=== PATIENT | female | born 1970 | race Caucasian/White ===

== ENCOUNTER 2024-07-02 16:16 | Outpatient (REF) | payer MEDICAID, SELFPAY | END 2024-07-02 16:17 | disposition home or self-care (01) | LOC: LBN 16:16 | PROVIDERS: Visit Provider Physician Assistant | DX: J02.9 Acute pharyngitis, unspecified (principal); R30.0 Dysuria; N39.0 Urinary tract infection, site not specified | CPT/HCPCS: 87070; 87480; 87510; 87660 ==

== ENCOUNTER 2024-11-12 13:14 | Outpatient (REF) | payer MEDICAID, SELFPAY | END 2024-11-12 13:15 | disposition home or self-care (01) | LOC: LBN 13:14 | PROVIDERS: PCP Nurse Practitioner Family; Visit Provider Nurse Practitioner Family | DX: N76.0 Acute vaginitis (principal) | CPT/HCPCS: 87480; 87510; 87660 ==

== ENCOUNTER 2024-11-12 13:47 | Outpatient (CLI) | payer MEDICAID, SELFPAY ==
[2024-11-12 12:42] LABS: Hemoglobin A1C 5.7 % (<5.7)
[2024-11-12 13:16] LABS: ALT 20 U/L (14-59); AST 16 U/L (15-37); Albumin 3.9 g/dL (3.4-5.0); Alkaline Phosphatase 69 U/L (46-116); Anion Gap 5.2 mmol/L (3-11); BUN 12 mg/dL (7-18); Bilirubin, Total 0.4 mg/dL (0.2-1.0); CO2 29.8 mmol/L (21.0-32.0); Calcium 9.5 mg/dL (8.5-10.1); Calculated LDL 150 mg/dL (<100); Chloride 103 mmol/L (98-107); Cholesterol 234 mg/dL (<200); Estimated GFR 75.50 (mL/min/1.73m2); Glucose 91 mg/dL (74-106); HDL Cholesterol 62 mg/dL (>or=50); Potassium 4.7 mmol/L (3.5-5.1); Sodium 138 mmol/L (136-145); TSH (W/Ref FT4) 1.62 uIU/mL (0.36-3.74); Total Protein 7.4 g/dL (6.4-8.2); Triglyceride 110 mg/dL (<150)
== END 2024-11-12 13:48 | disposition home or self-care (01) ==
LOC: LBO 13:48
PROVIDERS: PCP Nurse Practitioner Family; Visit Provider Nurse Practitioner Family
DX: Z13.1 Encounter for screening for diabetes mellitus (principal); E03.9 Hypothyroidism, unspecified; I10 Essential (primary) hypertension; Z13.220 Encounter for screening for lipoid disorders
CPT/HCPCS: 36415; 80053; 80061; 83036; 84443

== ENCOUNTER 2024-11-19 13:04 | Outpatient (CLI) | payer MEDICAID, SELFPAY ==
[2024-11-19 10:59] LABS: HCT 45.0 % (36.0-46.0); HGB 15.3 g/dL (11.2-15.7); MCH 32.0 pg (27.0-33.0); MCHC 34.0 % (32.0-36.0); MCV 94 fL (80-95); MPV 9.2 fL (8.0-11.0); Platelet Count 232 10^3/uL (130-400); RBC 4.78 10^6/uL (3.93-5.22); RDW 13.8 % (11.7-14.6); RDW-SD 47.8 fL; WBC 9.21 10^3/uL (4.4-10.8)
== END 2024-11-19 13:05 | disposition home or self-care (01) ==
LOC: LBO 13:05
PROVIDERS: PCP Nurse Practitioner Family; Visit Provider Nurse Practitioner Family
DX: F10.20 Alcohol dependence, uncomplicated (principal); F17.200 Nicotine dependence, unspecified, uncomplicated; K21.9 Gastro-esophageal reflux disease without esophagitis
CPT/HCPCS: 36415; 85027

== ENCOUNTER 2025-02-16 09:56 | Day surgery (SDC) | payer MEDICAID, SELFPAY ==
[2025-02-16 10:28] VITALS: BP 128/96; PULSE 74; RESP 18; TEMP 36.3; O2SAT 99
[2025-02-16] MEDS: Lactated Ringers 1,000 ML 80 ML IV (10:47)
--- NOTE | 2025-02-16 11:07 | W.PM.DSUDISC ---
Date of service: 02/16/25 Discharge Plan Disposition Patient Disposition: Home Condition: Stable Discharge Details Reason For Visit: EGD and colonoscopy procedures Attending Provider: Caroline Newton Primary Care Provider: Jimenez Aragon Home Meds and New Rx's Prescriptions: New pantoprazole 40 mg tablet,delayed release (DR/EC) 40 mg PO DAILY Qty: 30 11RF famotidine 40 mg tablet 40 mg PO QHS Qty: 30 11RF Continued magnesium glycinate 100 mg tablet 100 mg PO DAILY potassium gluconate 600 mg (99 mg) tablet 600 mg PO DAILY lisinopril 10 mg tablet 10 mg PO DAILY Qty: 90 3RF Discontinued famotidine 20 mg tablet 20 mg PO DAILY Discharge Instructions Additional Instructions: EGD today shows one esophagus varix (varices, but I only saw one). It is grade 1, not severe. You also have severe esophagitis with erosion and you showed signs that you bleed from the esophagus. We have to treat this with medication, its so important that we heal this before you end up with a major bleeding emergency. I am prescribing a medicine called pantoprazole, I need you to take it once a day to help heal the esophagus. Over time your stomach issues will improve, but remember to take that medicine even if you dont feel improvement - it heals your esophagus and thats what we need from it. Due to the severity of the esophagitis, I am also recommending we increase your pepcid dose. I am prescribing a 40mg tablet for you to take at night time. Take pantoprazole in the morning, and the pepcid (famotidine) at night. Duodenum was also irritated and so was the stomach. Nothing severe there, not like the esophagus irritation. I took biopsies as planned to check you for H pylori infection and will reach out my phone if you have it, and by mail if you do not. Colonoscopy showed 2 small polyps, I removed them. Healthy colon and rectum. Next colonoscopy will be due in 5 years. I need you to come see me in office so I can help you resolve the esophagus stuff before it gets severe. I scheduled a follow up for 03/04/25 at 930am. If that doesnt work call my office and change it, but be sure to come see me. Stand Alone Forms: Anesthesia Discharge Inst., DSU Post EGD Instructions, Colonoscopy Post Instructions, Karis Chen (DSU), Portal Information Activity:: Activity as Tolerated Diet:: As Tolerated Discharge Orders Discharge Orders: Discharge Order (Routine); Ordered 02/16/25 Ordered By: Caroline Newton DS: Diagnosis Discharge Diagnosis (1) GERD (gastroesophageal reflux disease): Status: Chronic (2) Encounter for screening colonoscopy: Status: Acute (3) Erosive esophagitis: Status: Acute (4) Gastritis and duodenitis: Status: Acute
--- NOTE | 2025-02-16 11:14 | W.ANESPRE ---
General Info Date of Service Date Performed: 02/16/25 Height: 5 ft 4.25 in Weight: 75.75 kg Body Mass Index (BMI): 28.4 Surgical Procedure: Operation Date: 02/16/25 11:05 Proposed Procedure Side Surgeon p Colonoscopy/Gastroscopy Caroline Newton MD Actual Procedure Side Surgeon p Colonoscopy/Gastroscopy Caroline Newton MD Meds Allergies and Home Medications Allergies Allergy/AdvReac Type Severity Reaction Status Date / Time No Known Allergies Allergy Verified 02/16/25 10:25 Home Medication Medication Instructions Recorded famotidine 20 mg tablet 20 mg PO DAILY 07/02/24 magnesium glycinate 100 mg (as 100 mg PO DAILY 07/02/24 glycinate) tablet potassium gluconate 600 mg (99 mg) 600 mg PO DAILY 07/02/24 tablet lisinopril 10 mg tablet 10 mg PO DAILY #90 tabs 11/12/24 Current Visit Medications: Current Medications Generic Name Dose Route Start Last Admin Trade Name Freq PRN Reason Stop Dose Admin Ringer's Solution 1,000 mls @ 80 mls/hr 02/16/25 06:00 02/16/25 10:47 IV 02/16/25 23:59 80 mls/hr INFUSION FRANKO Administration IV Miscellaneous Supplies 1 each 02/16/25 06:00 Iv Access IV 02/16/25 23:59 DIRECTED FRANKO Sodium Chloride 0 ml 02/16/25 06:00 Normal Saline Flush 10 Ml Syr IV 02/16/25 23:59 PRN PRN Sodium Chloride 0 ml 02/16/25 06:00 Normal Saline 10 Ml Vial IJ 02/16/25 23:59 DIRECTED PRN Sterile Water 0 ml 02/16/25 06:00 Water,Injection,Sterile 10 Ml Vial IJ 02/16/25 23:59 DIRECTED PRN PFSH Active Problems Active Problems: Problem Status Onset Code Encounter for screening colonoscopy Acute Z12.11 Smoker Acute F17.200 Alcoholism Acute F10.20 Depression Chronic F32.A GERD (gastroesophageal reflux disease) Chronic K21.9 Hypertension Chronic I10 Surgical History Surgical History S/P appendectomy (~2019) [facility] [place] Tobacco Smoking/Tobacco Use Status: Current every day Tobacco Type: cigarettes Passive smoking exposure: Yes Second hand exposure: Yes Alcohol Alcohol Intake: current Alcohol intake frequency: a few times a week Alcohol type: hard liquor Substance Use Substance use: Occasionally Substance use type: marijuana Details: None in the past few days. Vital Signs and Lab Results Vital Signs Most Recent Vital Signs in EMR: Most Recent Vital Signs Temp Pulse Resp BP Pulse Ox 36.3 C L 74 18 128/96 H 99 02/16/25 10:28 02/16/25 10:28 02/16/25 10:28 02/16/25 10:28 02/16/25 10:28 Anesthesia Assessment and Plan Anesthesia History Personal History: No History of Anesthesia Complications Family History: No Family History of Anesthesia Complications Exercise Tolerance Exercise Tolerance: Metabolic Equivalents>4 Pertinent Negatives Pertinent Negatives: No Symptoms of GERD (recurrent GERD), No Major Cardiovascular Symptoms or Complaints, No Major Pulmonary Symptoms or Complaints and No History of CVA/TIA Cardiac & Pulmonary Exam Cardiac Exam: Normal S1/S2 Heart Sounds Pulmonary Exam: Clear Bilateral Breath Sounds Implantable Cardiac Device Does patient have a Pacemaker or an ICD?: No Airway Exam Known Difficult Airway: No Mallampati Class: 1 Mouth Opening: Normal (> 3cm) Thyromental Distance: Greater than 3 cm Neck Range of Motion: Full ROM Neck Circumference: Normal Teeth Condition: Normal Dentition ASA Classification ASA Score: ASA 2 Emergency Case?: No NPO Status NPO Status: NPO Clears >2 hours, Solids >8 hours Anesthesia Plan Resuscitation Status: Full Code Anesthesia Technique: General Anesthesia Airway Planned: Natural Airway Monitors Used: Standard Monitors
[2025-02-16 11:16] VITALS: BMI 28.4
--- NOTE | 2025-02-16 11:22 | BOWEL_PTH ---
PATIENT: Candie Salas LOC: NURIS U#:[id number] AGE/SX: 54/F ROOM: RE02/16/[address]: Caroline Newton MD : 1970 BED: DIS: 02/16/2025 SPEC #: [id number] RECD: 02/16/25 12:24 STATUS: BRAN REMorris #: [id number] CEASAR: 02/16/25 11:[address]: Caroline Newton DEPT: Surgical Specimen RECD BY: Nga Abbott ENTERED: 02/16/25 12:25 SP TYPE: Bowel OTHR DR: Jimenez Aragon, MOLDER SETTER Tissues: 1 - BIOPSY BOWEL 2 - STOMACH BIOPSY 3 - STOMACH BIOPSY 4 - ESOPHAGUS BIOPSY 5 - BIOPSY BOWEL 6 - BIOPSY BOWEL Procedures: GROSS AND MICRO LEVEL 4 Comments: [id number]
[2025-02-16 11:48] VITALS: BP 116/80; PULSE 77; RESP 17; TEMP 36.7; O2SAT 99
--- NOTE | 2025-02-16 11:50 | W.PM.ENDDOP ---
Date of service: 02/16/25 Time of Service: 11:50 Endoscopy Report DATE OF PROCEDURE: 02/16/25 PRE-OP DIAGNOSIS: GERD, epigastric pain POST-OP DIAGNOSIS: same (1. erosive esophagitis. 2. gastritis. 3. duodenitis. 4. esophageal varix grade 1) PROCEDURE: EGD with biopsy SURGEON: Caroline Newton ANESTHESIA TYPE: General:No Airway ESTIMATED BLOOD LOSS: 2 PATHOLOGY: other (1. duodenum biopsy. 2. antrum biopsy. 3. fundus biopsy. 4. distal esophagus biopsy ) COMPLICATIONS: None DISPOSITION: same day INDICATIONS: Evaluation of upper digestive system for GERD and epigastric pain source/cause PROCEDURE DESCRIPTION: Lubricated endoscope was passed through a bite block into the second portion of the duodenum. The endoscope was withdrawn and the duodenum stomach and esophageal mucosa examined. The duodenum appeared chronically inflamed. There is no ulceration or erosion. The antrum appears chronically inflamed. The fundus is also chronically inflamed, with mild to moderate erythema and friability. The cardia appears normal. There are flecks of old blood speckled throughout the stomach. The endoscope was retroflexed and there is no evidence of hiatal hernia. GE junction is at 39cm from the incisors. The distal esophagus is inflamed with erosion and shallow ulceration. All erosions and ulcer have exudate on them, no visible vessels, adherent clot or other stigmata of acute bleeding. The Z-line is regular. There is no clear evidence of Field's esophagus but the exam is limited by the inflammation and erosion. There is suggestion of a grade 1 varix in the distal esophagus. Remainder of the esophagus appears normal Cold forceps biopsies obtained from the duodenum, antrum, fundus and distal esophagus for microscopic evaluation for celiac sprue, H. pylori, Barretts esophagus. The upper digestive system was desufflated and the endoscope withdrawn. No complications. Assessment and plan: Esophagitis with erosion/ulceration Grade 1 esophageal varix gastritis duodenitis symptoms are due to severe esophagitis with erosion and shallow ulceration, gastritis and duodenitis. She has not tolerated PPI in the past due to muscle spasms that she attributes to hypomagnesemia while taking PPI. We discussed the need for PPI to heal the inflamed areas and prevent bleeding complications of the esophagitis. She experiences melena and has signs of intermittant previous bleeding though no active bleeding was seen today. It is important for her to try PPI and see if she tolerates it. If muscle spasms occur she was instructed to report it to me and discontinue the PPI. I will increase her pepcid to 40mg QHS. See me in office in 2 weeks. We will review biopsies at the office visit and formulate a correction plan of care. Alcohol cessation is needed and we will discuss that at follow up.
--- NOTE | 2025-02-16 11:50 | W.COLOREPORT ---
Date of service: 02/16/25 Time of Service: 11:50 Colonoscopy Report Date of procedure: 02/16/25 Pre-op diagnosis general: Screening for colorectal cancer Post-op diagnosis procedure note: same (1. ascending colon polyp. 2. rectum polyp) Procedure: Colonoscopy with cold forceps polypectomy Surgeon: Caroline Newton Anesthesia Type: General:No Airway Estimated blood loss (mL): 1 Pathology: none sent (1. ascending colon polyp. 2. rectum polyp. ) Complications: None Indications: screening for colorectal cancer Prep: Miralax/Dulcolax (good) Procedure Description: Informed consent was obtained and the patient was taken to the procedure area. The patient was placed in left lateral decubitus position on the procedure table. Timeout was performed. Anesthesia was induced. A lubricated colonoscope was inserted through the anus and passed to the cecum. The cecum was identified by the ileocecal valve and the appendiceal orifice. The scope was then slowly withdrawn and the colonic and rectal mucosa examined. Ascending colon polyp 5mm sessile excised with cold forceps. Rectum polyp 3mm sessile excised with cold forceps. No diverticulosis was seen. The scope was retroflexed in the anorectal junction examined. Uncomplicated internal hemorrhoids present. Assessment and plan: screening for colorectal cancer ascending colon polyp rectum polyp Two polyps seen and removed. Timing of next colonoscopy will depend on path of polyps. If tubular adenoma, next scope in 5 years. If serrated polyp, next scope in 3 years. Rectum polyp suspected to be hyperplastic, but ascending polyp appears adenomatous, will follow up on biopsy result and communicate plan with patient.
--- NOTE | 2025-02-16 11:59 | W.ANESPOSTOP ---
Postoperative Evaluation Date, Time and Location Date Performed: 02/16/25 Time Performed: 11:50 Patient Location: Day Surgery Unit Vital Signs Most Recent Imported Vital Signs: Most Recent Vital Signs Temp Pulse Resp BP Pulse Ox 36.7 C 77 17 116/80 99 02/16/25 11:48 02/16/25 11:48 02/16/25 11:48 02/16/25 11:48 02/16/25 11:48 Pain Score Most Recent Pain Score: Most Recent Pain Score Pain Level 0 02/16/25 11:48 Assessment Mental Status: Awake (Alert & Oriented to Patient Baseline) Airway and Respiratory Function: Patent airway with normal (patient baseline) respiratory exam Cardiovascular Function: Hemodynamically Stable Hydration Status: Adequately Hydrated Nausea & Vomiting: No Nausea or Vomiting Pain: Pt. Denies Any Pain Peripheral Nerve Block: Patient did not receive a nerve block
[2025-02-16 12:20] VITALS: BP 116/86; PULSE 66; RESP 16; TEMP 36.6; O2SAT 100
== END 2025-02-16 12:35 | disposition home or self-care (01) ==
PROVIDERS: PCP Nurse Practitioner Family; Visit Provider Surgery
PROC: (CPT 45380; principal; 2025-02-16 11:00)
DX: K21.9 Gastro-esophageal reflux disease without esophagitis (principal); Z12.11 Encounter for screening for malignant neoplasm of colon; K22.10 Ulcer of esophagus without bleeding; K29.90 Gastroduodenitis, unspecified, without bleeding; K62.1 Rectal polyp; D12.2 Benign neoplasm of ascending colon; K64.8 Other hemorrhoids; K31.89 Other diseases of stomach and duodenum
CPT/HCPCS: 45380; 43239; 88305; J2405; J2704

== ENCOUNTER 2025-03-04 10:27 | Outpatient (CLI) | payer MEDICAID, SELFPAY ==
[2025-03-04 12:13] LABS: Magnesium 2.2 mg/dL (1.6-2.6)
[2025-03-04 12:15] LABS: Anion Gap 6.7 mmol/L (3-11); BUN 11 mg/dL (9-23); CO2 29.3 mmol/L (20.0-31.0); Calcium 9.4 mg/dL (8.3-10.6); Chloride 106 mmol/L (98-107); Glucose 82 mg/dL (74-106); Potassium 4.8 mmol/L (3.5-5.1); Sodium 142 mmol/L (136-145)
== END 2025-03-04 10:28 | disposition home or self-care (01) ==
LOC: LBO 10:27
PROVIDERS: PCP Nurse Practitioner Family; Visit Provider Surgery
DX: M62.838 Other muscle spasm (principal)
CPT/HCPCS: 36415; 80048; 82330; 83735